=== PATIENT | female | born 2000 | race Caucasian/White ===

== ENCOUNTER 2019-04-25 15:53 | Outpatient (CLI) | payer BC ==
[~2019-04-25 15:53] MED LIST: Gadobenate Dimeglumine 529 MG/1 ML (20ML VIAL) ONE
--- NOTE | 2019-04-25 21:39 | MRI ---
MRA ABDOMEN AND PELVIS WITH CONTRAST: 04/25/2019 TECHNIQUE: Coronal slab MRA performed. FINDINGS: The majority of the visualized descending thoracic aorta is unremarkable. The abdominal aorta is unr emarkable. No evidence of aortic dissections or aneurysms seen. The SMA, celiac, and inferior mesen teric artery, as well as renal arteries, are all patent. The right and left common and external iliac arteries are patent. IMPRESSION: Unremarkable abdominal magnetic resonance angiography and pelvic magnetic resonance angiography. POS: [facility]
--- NOTE | 2019-04-25 21:41 | MRI ---
MRA BILATERAL LOWER EXTREMITIES: HISTORY: Tingling and numbness. TECHNIQUE: Coronal slab contrast enhanced MRA performed. FINDINGS: The right and left external iliac arteries, the common femoral arteries, the superficial femoral gabbie cam, the popliteal arteries, the anterior tibial arteries, the posterior tibial arteries, and the pe roneal arteries are all visualized and are patent. No significant evidence of arterial occlusion is seen. IMPRESSION: Normal bilateral lower extremity arterial magnetic resonance angiography. POS: [facility]
== END 2019-04-25 15:54 | disposition home or self-care (01) ==
LOC: SCSMRI 15:53
PROVIDERS: ATTEND Orthopaedic Surgery
DX: M79.A22 Nontraumatic compartment syndrome of left lower extremity (principal); M79.A21 Nontraumatic compartment syndrome of right lower extremity; Z98.890 Other specified postprocedural states
CPT/HCPCS: 74185; A9577; C8900; C8912

== ENCOUNTER 2019-06-27 22:18 | Emergency (ER) | payer BC ==
[2019-06-27] MEDS ORDERED: Ketorolac Tromethamine 30 MG/ML VIAL ONE (23:08)
[2019-06-27] MEDS ORDERED: Acetaminophen 500 MG TAB ONE (23:14)
== END 2019-06-27 23:36 | disposition home or self-care (01) ==
LOC: ERS 22:18
DX: S83.91XA Sprain of unspecified site of right knee, initial encounter (principal); Z79.899 Other long term (current) drug therapy; X50.1XXA Overexertion from prolonged static or awkward postures, initial encounter
CPT/HCPCS: 96372; 99282; J1885